=== PATIENT | male | born 2000 | race Caucasian/White ===

== ENCOUNTER 2018-01-12 10:51 | Emergency (ER) | payer OTHER ==
[~2018-01-12] VITALS: Ht 170.2 cm; Wt 56.7 kg
[2018-01-12 10:55] VITALS: BP 117/91
--- NOTE | 2018-01-12 10:59 | NUR ---
PATIENT AMBULATED TO BED 6.
--- NOTE | 2018-01-12 11:05 | NUR ---
17M BIB SELF C/O 08/25 UMBILICAL/RLQ ABDOMINAL PAIN WITH NAUSEA SINCE LAST NIGHT WITH SLIGHT BURNING ON URINATION. PT DENIES ANY V/D OR FEVERS. PT STS PAIN OCCURED SUDDENLY AND RANDOMLY. PT STS ABLE TO TOLERATE FOOD WELL. PT ATE BREAKFAST. PT IS AOX4 TO PERSON, SITUATION, PLACE, AND TIME. RR ARE EVEN AND UNLABORED. PT POSITIONED TO COMFORT. ALL NEEDS MET AT THIS TIME. AWAITING ER MD MIRANDA. WILL CONTINUE TO MONITOR.
[2018-01-12] MEDS ORDERED: KETOROLAC 60 MG/2 ML VIAL IM ONE (11:20)
--- NOTE | 2018-01-12 11:50 | NUR ---
d/c pt home; reviewed pt discharge packet; went over medication regiment, side effects. Educated pt on s/sx to return to ED, call 911, call PCP. Answered all pt questions and pt denied further questions. Vitals were taken. Pt ambulated to exit.
[2018-01-12 11:53] VITALS: BP 120/88
== END 2018-01-12 11:50 | disposition home or self-care (01) ==
LOC: MED 10:51
DX: R10.32 Left lower quadrant pain (principal); R11.2 Nausea with vomiting, unspecified
CPT/HCPCS: 81002; 96372; 99283; J1885

== ENCOUNTER 2018-07-06 07:52 | Emergency (ER) | payer SELFPAY ==
[~2018-07-06] VITALS: Ht 170.2 cm; Wt 59.0 kg
--- NOTE | 2018-07-06 07:54 | NUR ---
PT AMBULATES TO BED 6
[2018-07-06 07:58] VITALS: BP 136/90
--- NOTE | 2018-07-06 08:02 | NUR ---
BIB self w/ c/o L eye redness/swelling x2 days. pt denies pain: 0/10, denies injury. L eye has a bump on the upper eyelid & redness of the sclera, pt appears to be anxious, exhibiting mild tachycardiaBIB self w/ c/o L eye redness/swelling x2 days. pt denies pain: 0/10, denies injury. L eye has a bump on the upper eyelid & redness of the sclera, pt appears to be anxious, exhibiting mild tachycardia, SKIN IS PINK/WARM/DRY; AAOX4 WITH EVEN AND STEADY GAIT, PATIENT POSITIONED FOR COMFORT; HOB ELEVATED; BEDRAILS UP X1; BED DOWN. ER MD MADE AWARE OF PT STATUS.
--- NOTE | 2018-07-06 08:07 | NUR ---
Patient being evaluated by physician at bedside.
[2018-07-06] MEDS ORDERED: TETRACAINE HCL/PF 0.5% OPTH 4 ML BTL OP ONE (08:10)
[2018-07-06] MEDS ORDERED: FLUORESCEIN OPTH STRIP 0.6 MG OP ONE (08:15)
--- NOTE | 2018-07-06 08:15 | NUR ---
Medications at bedside as ordered
[2018-07-06] MEDS ORDERED: FLUORESCEIN OPTH STRIP 0.6 MG ONE (08:24)
--- NOTE | 2018-07-06 09:00 | NUR ---
flushed eye as ordered
[2018-07-06 09:02] VITALS: BP 136/90
--- NOTE | 2018-07-06 09:03 | NUR ---
Patient discharged with v/s stable. Written and verbal after care instructions given and explained. Patient alert, oriented and verbalized understanding of instructions. Ambulatory with steady gait. All questions addressed prior to discharge. ID band removed. Patient advised to follow up with PMD. Rx of bleph ophthalmic drops given. Patient educated on indication of medication including possible reaction and side effects. Opportunity to ask questions provided and answered.
== END 2018-07-06 09:03 | disposition home or self-care (01) ==
LOC: MED 07:52
DX: S05.02XA Injury of conjunctiva and corneal abrasion without foreign body, left eye, initial encounter (principal); W22.8XXA Striking against or struck by other objects, initial encounter; Y93.89 Activity, other specified; Y92.89 Other specified places as the place of occurrence of the external cause; Y99.8 Other external cause status
CPT/HCPCS: 99283

== ENCOUNTER 2020-11-29 14:24 | Emergency (ER) | payer OTHER ==
[~2020-11-29] VITALS: Ht 170.2 cm; Wt 59.0 kg
[2020-11-29 14:52] VITALS: BP 114/78
--- NOTE | 2020-11-29 14:52 | NUR ---
20 YEAR OLD MALE COMPLAINS OF HEADACHE X YESTERDAY. PT STATES HEADACHE HAS BEEN THERE FOR 4 MONTHS BUT GOT WORSENED YESTERDAY, FOLLOWED BY NAUSEA/VOMITTING. PT DENIES SOB, COUGH. PT DENIES BODYACHES. PMH - DENIES
[2020-11-29] MEDS ORDERED: ACETAMINOPHEN 325 MG TAB PO ONE (15:15)
[2020-11-29] MEDS ORDERED: ACET-10509 PO (15:21)
== END 2020-11-29 15:30 | disposition home or self-care (01) ==
LOC: MED 14:24
DX: R51.9 Headache, unspecified (principal); Z79.899 Other long term (current) drug therapy
CPT/HCPCS: 99282